=== PATIENT | male | born 1930 | race Caucasian/White ===

== ENCOUNTER 2020-11-18 12:50 | Emergency (ER) | payer OTHER, BC ==
[~2020-11-18] VITALS: Ht 188 cm; Wt 117.9 kg
[2020-11-18 13:58] LABS: URINE BILIRUBIN NEGATIVE (Negative); URINE BLOOD TRACE (Negative); URINE CLARITY CLEAR; URINE COLOR YELLOW; URINE GLUCOSE-RANDOM* NEGATIVE (Negative); URINE KETONES NEGATIVE (Negative); URINE LEUKOCYTES-REFLEX NEGATIVE (Negative); URINE NITRITE-REFLEX NEGATIVE (Negative); URINE PROTEIN (DIPSTICK) 2+ (Negative); URINE SPECIFIC GRAVITY >= 1.030 (1.005-1.035); URINE UROBILINOGEN 0.2 E.U./dl (0.2-1.0)
[2020-11-18 14:10] LABS: HEMATOCRIT 40.9 % (42.0-52.0); HEMOGLOBIN 13.7 gm/dL (14.0-18.0); MCHC 33.4 g/dL (28.0-37.0); MCV 89.8 fL (80.0-100.0); RBC 4.56 mil/uL (4.50-6.00); RDW 13.7 % (10.5-14.5); WBC 7.7 thou/uL (4.0-11.0)
[2020-11-18 14:12] LABS: BACTERIA-REFLEX 1-9 Few /HPF (None Seen); SQUAMOUS 0-3 Few /LPF (0-3); URINE RBC 1-2 Rare /HPF (NONE SEEN); URINE WBC-REFLEX 0-5 Rare /HPF (0-5)
[2020-11-18 14:14] LABS: MUCUS 4-6 Moderate strn/LPF (None Seen)
[2020-11-18 14:19] LABS: CALCIUM 8.2 mg/dL (8.5-10.1); CREATININE 2.8 mg/dL (0.7-1.3)
[2020-11-18 14:25] LABS: ALBUMIN 3.2 g/dL (3.4-5.0); TOTAL BILIRUBIN 0.9 mg/dL (0.2-1.0); TOTAL PROTEIN 7.1 g/dL (6.4-8.2)
[2020-11-18 16:12] VITALS: BP 103/61
[2020-11-18] MEDS ORDERED: NORVASC10 MG PO (16:17)
[2020-11-18] MEDS ORDERED: ASA81BEC PO (16:18)
[2020-11-18] MEDS ORDERED: ATORVASTATIN CA80 MG PO (16:18)
[2020-11-18] MEDS ORDERED: DICLOFENAC SOD100 G1 TOP (16:19)
[2020-11-18] MEDS ORDERED: CHILDREN'S ZYRT10 M1 PO (16:19)
[2020-11-18] MEDS ORDERED: DEPAKOTE ER500 M1 PO (16:19)
[2020-11-18] MEDS ORDERED: DULCOLAX STOOL100 M1 PO (16:20)
[2020-11-18] MEDS ORDERED: GLIPIZIDE 10 MG10 MG PO (16:21)
[2020-11-18] MEDS ORDERED: LEXAPRO20 MG PO (16:21)
[2020-11-18] MEDS ORDERED: ROBITUSSIN100 MG/53 PO (16:22)
[2020-11-18] MEDS ORDERED: HYDRALAZINE 5050 MG PO (16:23)
[2020-11-18] MEDS ORDERED: SUPER THERAVIT1 EACH PO (16:24)
[2020-11-18] MEDS ORDERED: MAALOX ADVANCE355 ML PO (16:24)
[2020-11-18] MEDS ORDERED: FISH OIL 1,001000 M3 PO (16:24)
[2020-11-18] MEDS ORDERED: ONDANSETRON ODT4 MG PO (16:25)
[2020-11-18] MEDS ORDERED: PROTONIX 20 MG20 MG PO (16:25)
[2020-11-18] MEDS ORDERED: FLOMAX0.4 MG PO (16:26)
--- NOTE | 2020-11-19 07:30 | EKG ---
[address] [address] ELECTROCARDIOGRAM REPORT Name: ORLIN ESPINOZA Room #: RENU aGviria#: [id number] Admission: 11/18/20 Attend Phys: Discharge: 11/18/20 Date of : [birth year] Report #: [id number] [facility] ED Test Date: 2020-11-18 Test Time: 14:02:56 Pat Name: ORLIN ESPINOZA Department: Room: Gender: M Casting Sorter: franck : 1930 Requested By: Tiffani Nice Order Number: [id number] MD: John Gutierres Measurements Intervals [place] Rate: 70 P: 14 MO: 183 QRS: -39 QRSD: 114 T: 27 QT: 423 QTc: 457 Interpretive Statements Sinus rhythm Atrial premature complex Left ventricular hypertrophy No previous ECG available for comparison Electronically Signed On 11-19-2020 7:30:06 CDT by John Gutierres [email or web address] <ELECTRONICALLY SIGNED> By: John Gutierres MD, [facility] 11/19/20 0730 1402 1402 John Gutierres MD, FACC /EPI
== END 2020-11-18 16:38 ==
LOC: ER 12:50
PROVIDERS: Nurse Practitioner Family
DX: F23 Brief psychotic disorder (principal); Z20.822 Contact with and (suspected) exposure to COVID-19; N18.9 Chronic kidney disease, unspecified; I12.9 Hypertensive chronic kidney disease with stage 1 through stage 4 chronic kidney disease, or unspecified chronic kidney disease; E11.22 Type 2 diabetes mellitus with diabetic chronic kidney disease; K21.9 Gastro-esophageal reflux disease without esophagitis

== ENCOUNTER 2020-11-18 17:48 | Inpatient (IN) | payer OTHER, BC ==
[~2020-11-18] VITALS: Ht 188 cm; Wt 118.8 kg
[~2020-11-18 17:48] MED LIST: ASA81BEC PO; ATORVASTATIN CA80 MG PO; CHILDREN'S ZYRT10 M1 PO; DEPAKOTE ER500 M1 PO; DICLOFENAC SOD100 G1 TOP; DULCOLAX STOOL100 M1 PO; FISH OIL 1,001000 M3 PO; FLOMAX0.4 MG PO; GLIPIZIDE 10 MG10 MG PO; HYDRALAZINE 5050 MG PO; LEXAPRO20 MG PO; MAALOX ADVANCE355 ML PO; NORVASC10 MG PO; ONDANSETRON ODT4 MG PO; PROTONIX 20 MG20 MG PO; ROBITUSSIN100 MG/53 PO; SUPER THERAVIT1 EACH PO
[2020-11-18 17:59] VITALS: BP 168/86
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
[2020-11-18 20:06] VITALS: BP 142/46
[2020-11-18 20:45] VITALS: BP 148/84
--- NOTE | 2020-11-19 04:08 | NUR ---
11-19-20 CARE TRANSFERRED 1899 OBSERVED PT SITTING IN DAY ROOM. LATER PT AAOX4, VSS, RR EVEN AND NONLABORED ON RA. PT DENIES SI/HI AND PAIN. PT PRESENTS CALM AND COOPERATIVE. DURING MEDICATION ADMIN PT HAD NO DIFFICULTIES, PT REPORTED HE WANTS TO GET BETTER, SO HE CAN GO HOME. PT ALSO REQUESTED SOMETHING TO HELP HIM SLEEP, PRN GIVEN. OBSERVED PT WALKING TO ROOM, PT HAS FULL ROM WITH STEADY GAIT. LATER NOTED PT RESTING WITH EYES CLOSED SUPINE IN BED. PT WILL CONTNUE TO BE MONITOR PER [facility] PROTOCOL.
[2020-11-19 06:51] LABS: CHOLESTEROL 111 mg/dL (<200); HDL CHOLESTEROL 31 mg/dL (>40); LDL CHOLESTEROL 46 mg/dL (<100); TC:HDL 3.6 Ratio (Not establshd); TRIGLYCERIDE 172 mg/dL (<150); VLDL 34 mg/dL (<40)
[2020-11-19 09:36] VITALS: BP 149/52
[2020-11-19 10:21] VITALS: BP 149/52
--- NOTE | 2020-11-19 10:50 | NUR ---
1050 assumed care of pt from overnight nurse. pt alert and oriented times 4. pt hard of hearing. pt denies pain. pt denies SI/HI/AH/VH. pt lungs clear. pt abdomen soft,bowel sound present. pt takes medication whole. will cont to monitor pt for safety and behaviors.
[2020-11-19 15:54] LABS: FOLIC ACID 18.3 ng/mL (8.6-58.9)
--- NOTE | 2020-11-19 17:01 | NUR ---
1700 pt given IVF of NS at 250 ml per hour, per order. pt tolerated procedure well insertion of saline lock to right forearm. pt complain of agitation. PRN haldol given at 1535 of 5 mg PO Haldol. Pt vital signs taken, Temp 97.7 F, r 20, p 80, BP 150/80, 02 sat 97 on room air. will cont to monitor pt for adverse reactions to IVF administration.
--- NOTE | 2020-11-19 17:05 | NUR ---
1100 pt requested prn med for agitation.. PO Haldol 5 mg given. will cont to monitor pt for behaviors.
--- NOTE | 2020-11-19 18:21 | NUR ---
1821 PT SITTING IN CHANELLE CHAIR TOLERATING IVF WELL.
[2020-11-19 20:27] VITALS: BP 181/46
[2020-11-20 01:06] LABS: GLYCOHEMOGLOBIN (HGB A1C) 8.7 % (4.8-5.6)
--- NOTE | 2020-11-20 04:35 | NUR ---
11-19-20 CARE TRANSFERRED 1900 PT SITTING IN RECLINER WITH NS IVF @250ML, C/D/P. LATER PT AAOX4, VSS, RR EVEN AND NONLABORED ON RA, PT PRESENTS IRRITABLE AND WANTING TO GO TO ROOM, PT REMAINS COOPERATIVE, PT DENIES SI/HI BUT REPORTS LOWER BACK PAIN AND RATES ON 6 ON 0-10 SCALE. PT HAS LLE PITTING EDEMA +3. DURING MEDICATION ADMIN PT HAD NO DIFFICULTIES, BUT NOTED SLIGHT TREMOR IN UE, PT TOLERATED IVF WELL, IV S/L, C/D/P AND WRAPPED WITH CLEAN COBAN. PT WAS ACCOMPAINED TO ROOM AND PT BED WAS ADJUSTED FOR COMFORT. PT PAIN WAS REASSESSED AND PT SCORED 2 ON 0-10 SCALE. LATER NOTED PT RESTING WITH EYS CLOSED. PT WILL CONTINUE TO BE MONITOR PER [facility] PROTOCOL.
[2020-11-20 07:54] VITALS: BP 148/40
--- NOTE | 2020-11-20 09:24 | NUR ---
Assess due to new admit to H with acute psychosis. Hx DM, HTN, CKD. A1C 8.7. On glipizide, MVI, B12, fish oil and lipitor. Wt is obese, BMI 34. Does have pitting edema LE. Receives carb control diet and eating 50-100% of first few meals on the unit. Presents low nutrition risk
[2020-11-20 11:22] LABS: ABSOLUTE NEUTROPHILS 5.4 thou/uL (1.4-8.2); BASOPHILS 0.6 % (0.0-2.0); EOSINOPHILS 0.3 % (0.0-3.0); HEMATOCRIT 39.3 % (42.0-52.0); HEMOGLOBIN 12.8 gm/dL (14.0-18.0); LYMPHOCYTES 15.1 % (24.0-44.0); MCH 29.4 pg (26.0-34.0); MCHC 32.5 g/dL (28.0-37.0); MCV 90.3 fL (80.0-100.0); MONOCYTES 8.6 % (1.0-8.0); PLATELET COUNT 260 thou/uL (150-400); POLYS 75.4 % (36.0-66.0); RBC 4.35 mil/uL (4.50-6.00); RDW 13.5 % (10.5-14.5); WBC 7.2 thou/uL (4.0-11.0)
[2020-11-20 11:32] LABS: CALCIUM 8.5 mg/dL (8.5-10.1); CREATININE 2.6 mg/dL (0.7-1.3); MAGNESIUM 1.6 mg/dL (1.8-2.4); POTASSIUM 4.2 mmol/L (3.5-5.1)
--- NOTE | 2020-11-20 17:26 | NUR ---
PATIENT CARE ASSUMED AT 0700 - IRRITABLE AT TIMES AND INPATIENT. STATES ANXIOUS QUITE A BIT. GIVEN SEROQUEL X 2 25 MG PRN - STATED HELPS - BUN AND CREATINE WERE ELEVATED. GIVEN BOLUS OF NS - PATIENT HAS IV IN RIGHT LOWER WRIST. TOLERATED WELL. DID NOT EAT DINNER - STATES APPETITE POOR. EDEMA NOTED IN LOWER EXTREMITIES BILATERALLY. MAKES NEEDS KNOW READILY. STATES WANTS TO HAVE GOOD NIGHT SLEEP TONIGHT.
[2020-11-20 20:37] VITALS: BP 190/49
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
--- NOTE | 2020-11-21 03:08 | NUR ---
PATIENT CARE WAS RESUMED AT 1900. HE IS ALERT AND ORIENTED TO SELF. PATIENT IS RESING IN HIS BED. LUNGS ARE CLEAR BS ACTIVE X4 QUADS. HE DENIES PAINS/SI/AVH/HI. ABLE TO VERNABLIZE HIS NEEDS. HAS IV TO HIS RIGHT ARM WITH A TRASPARENT DRESSING IN-PLACE. HE TOOK HIS MEDS WHOLE WITHOUT ANY ISSUES. EDEMA+ NOTED TO HIS BLE. HE HAS A NON SKID SOCKS ON, BED IS LOW, LOCKED AND ALARMED. CALL BET AT BED SIDE, CONTINUE CARE.
[2020-11-21 09:45] VITALS: BP 145/40
--- NOTE | 2020-11-21 17:42 | NUR ---
0700 pt care was assumed. Pt was in the day room alert. Alert and oriented x4. Assessments completed, vss. Denies si/hi, denies pain at this time. Took meds whole, no difficulty noted. Ambulates with a walker. Calm, pleasant and cooperative with care. Makes needs known to staff. Continent of bowel and bladder. No sign of acute distress noted upon assessment. At this time pt is in the day room eating dinner. Will continue to monitor.
[2020-11-21 20:12] VITALS: BP 164/53
[2020-11-21 20:30] VITALS: BP 168/58
[2020-11-21 22:10] LABS: SYPHILIS AB Non Reactive (Non Reactive)
--- NOTE | 2020-11-22 03:53 | NUR ---
11-21-20 CARE TRANSFERED 1899. LATER PT AAOX4, VSS, RR EVEN AND NONLABORED ON RA. PT DENIES SI/HI AND PAIN, +2 PITTING EDEMA ON LLE, HT RR, ABD SOFT AND ACTIVE. PT PRESENTS PLESANT, CALM AND COOPERATIVE THROUGHOUT NURSING ASSESSMENT. DURING MEDICATION PT HAD NO DIFFICULTIES. LATER PT CAME TO NURSING STATION AND REPORTED FEELING ANXIOUS, A PRN MEDICATION WAS ADMIN. LATER NOTED PT RESTING WITH EYES CLOSED IN BED. PT WILL CONTINUE TO BE MONITOR PER [facility] PROTOCOL.
[2020-11-22 08:00] LABS: CALCIUM 8.4 mg/dL (8.5-10.1); CREATININE 2.5 mg/dL (0.7-1.3)
--- NOTE | 2020-11-22 09:04 | NUR ---
Agency transfer summary rec'd from [facility] as the pt was on service with them prior to admission. Services included RN/PT/OT/CASING RUNNING MACHINE TENDER/RT. [facility] CASING RUNNING MACHINE TENDER notified.
[2020-11-22 09:40] VITALS: BP 143/58
--- NOTE | 2020-11-22 12:50 | NUR ---
Patient care assumed at 0700, he was sitting in the day room, calm and cooperative, alert and oriented x4, he ate breakfast, pleasent during assessment, active bowel sound, breath sound clear, RR even and nonlabored on RA, color pink with brisk capillary refill, no edema noted, he took his medication whole, he asked for something for anxiety, his seroquel was increased and to be taken 3x, patient ambulate on a walker with staedy gait, he denies SI/HI, will continue to monitor patient on safety
--- NOTE | 2020-11-22 14:19 | NUR ---
Patient still complained of agitation, doctor ordered Lorazepan 0.5mg, it was given as ordered, will continue to monitor patient.
[2020-11-22 19:55] VITALS: BP 174/52
[2020-11-22 20:15] VITALS: BP 174/52
--- NOTE | 2020-11-22 23:15 | NUR ---
Assumed care on 11/22/20 @ 1900, A&Ox4 HRRR, Lungs CTA bilat, ABD N x 4Q Took meds whole with water, retired to bed @ HS. Will continue to monitor for safety and comfort as per unit protocol.
[2020-11-23 09:30] VITALS: BP 147/49
--- NOTE | 2020-11-23 12:03 | NUR ---
Care of patient assumed 0700, patient still sleeping in his room, came out to eat breakfast, calm and pleasant for assessment, active bowel sound, breath sound clear, skin intact, no edema noted, patient took his medication whole, walked with OT, the OT said he can ambulate with out his walker, patient denies si/hi, will continue to monitor patient for safety, no complain of pain
[2020-11-23 19:38] VITALS: BP 152/44
--- NOTE | 2020-11-24 04:19 | NUR ---
PATIENT CARE WAS RESUMED AT 1900.HE IS ALERT AND ORIENTED. ABLE TO VERBALISE SOME CONCERNS. DENIES ANY SI/AVH/HI. HE ANBULATES WITH WALKER. TOOK HIS MEDS CONTINENT OF BOWEL AND BLADDER. BED IS LOW,LOCKED . PATIENT S A NON SK
--- NOTE | 2020-11-24 04:32 | NUR ---
PATIENT CARE WAS RESUME [id number]. HW IA ALERT AND ORIENTED AMBULATED ABD ALETO VERBALISE SOME NEEDS. HE DENIES PAINS/SI/AVH AND HE IS CONTINENT OF BOWEL AND BLADDER.TOOK HIS MEDS WHOLE AND BED IS LOW, LOCKED AND ALARMED. NONE SKID SOCK IS APPLIED
[2020-11-24 08:46] VITALS: BP 130/47
[2020-11-24 09:11] VITALS: BP 130/47
--- NOTE | 2020-11-24 18:22 | NUR ---
Assumed pt care at 0700. Pt was in the day room. Alert and oriented x4. Assessments completed, vss. Denies si/hi, Denies pain at this time. Took meds whole, no difficulty noted. Requires med education upon administration. Pt was calm and coperative with care. Makes needs known to staff. Continent of bowel and bladder. Ambulates with walker. Pt is forgetful at times. No behaviors noted this shift. Spoke with his this shift. At this time pt is in the day room watching TV. Will continue to monitor.
[2020-11-24 20:03] VITALS: BP 165/51
--- NOTE | 2020-11-25 02:41 | NUR ---
PT CARE ASSUMED WITH PT IN BED AT SHIFT CHANGE.PT IS A/O X4.PT IS UP AD MIRIAM.PT RESISTED TAKING MEDS SAYING IS MAKING HER BLOOD PRESSURE HIGH.PT TAKE MEDS WHOLE WITH NO ISSUES.PT UPSET WHILE TALIKING ON THE PHONE.PT REMAIN IN HER ROOM TILL THIS TIME WITH NO ISSUES NOTED ON ROUNDS.WILL CONTINUE TO MONITOR
--- NOTE | 2020-11-25 02:57 | NUR ---
PT CARE ASSUMED WITH PT IN THE DAY ROOM WITH OTHERS WATCHING TV.PT IS A/O X4.PT IS UP WITH WALKER .PT WENT TO ROOM.PT TAKES MEDS WHOLE WITH NO ISSUES.PT WANTS TO GO HOME AND SAYS HE MISS HIS .PT HAD NO BEHAVIOURAL ISSUE TILL THIS TIME.PT ABLE TO TOILET SELF.WILL CONTINUE TO MONITOR PER POC
[2020-11-25 09:59] VITALS: BP 151/44
[2020-11-25 11:11] VITALS: BP 150/62
--- NOTE | 2020-11-25 12:39 | NUR ---
1230 RESUMMED CARE FROM OVERNIGHT SHIFT THIS AM PATIENT IN DAY ROM SITTING QUIET. PATIENT ATE BREAKFAST TOOK MEDICATION WITHOUT INCIDENCE PATIENT ALERT ORIENTED TIMES 4. PATIENT CALM COOPERATIVE DENIES SI/HI/AH/VH AT PRESENT. PATIENT ABDOMEN SOFT BOWEL SOUNDS PRESENT PATIENTS LUNGS CLEAR PATIENT PARTICPATED IN GROUPS. WILL CONTINUE TO MONITOR PATIENT FOR SAFETY AND BEHAVIORS.
--- NOTE | 2020-11-25 15:54 | NUR ---
RT PROGRESS NOTE-- HIS PARTICICPATION HAS BEEN GREAT WITH ATTENDING GROUPS IN THE [facility] THE GROUP THERAPY ROOM. PT HAS APPEARED TO BE CALM MAJORITY OF HIS ADMISSION. PT WILL BE ENCOURAGE TO CONTINUE TO ATTEND ALL RECREATION THERAPY GROUPS.
[2020-11-25 20:00] VITALS: BP 189/62
--- NOTE | 2020-11-26 02:55 | NUR ---
11-25-20 CARE TRANSFERRED 1900 OBSERVED PT SITTING IN DAY ROOM. LATER PT AAOX4, VSS, RR EVEN AND NONLABORED ON RA, PT DENIES PAIN AND SI/HI. PT PRESENTS PLESANT, CALM AND COOPERTIVE THROUGHOUT NURSING ASSESSMENT. DURING MEDICATION ADMIN PT HAD NO DIFFICULTIES TAKING MEDICATION WHOLE WITH WATER. PT WILL CONTINUE TO BE MONITOR PER [facility] PROTOCOL.
[2020-11-26 10:19] VITALS: BP 125/69
--- NOTE | 2020-11-26 11:30 | NUR ---
Patient care assumed 0700, he was sitting in the day room, alert and oriented x4, calm and cooperative with care, breath sound clear, regular HR auscultated, color pink with brisk capillary refill, no edema noted, skin intact, patient ate and took his medication whole, he abulate with steady gait, he attends groups and paticipated, he denies SI/HI, will continue to monitor for safety.
--- NOTE | 2020-11-26 16:23 | NUR ---
SIRISHA and Dr. Mishra spoke with the Pt's son Dony by phone. The Pt was also in the room during this meeting. Dony informed the family is seeking a guardianship and has contacted an trial attorney. Dony requested a letter from Dr. Mishra concerning the matter be faxed to the trial attorney. The Pt does not have a DPOA or guardian at this time. Medications were discussed. Discharge was also discussed. The Pt's is scared to be in the home with the Pt. Dony stated the Pt would be able to come to his home. Dony currently works from home and is able to provide some level of supervision for the Pt at this time. Dony stated the family is currently looking at assisted living facilities and planning to place once they obtain a guardianship. Discharge is scheduled for 11/27/2020. Dony asked that Venkat's other son Wilmer be called to transport. There were no other questions or concerns at this time. After the meeting SIRISHA contacted Wilmer, . Wilmer stated he was able to pick the Pt up between [id number]. D/C set for 11/27/2020 @ 1330. Pt has an appointment with PCP, Dr. Eliazbet Carrion 11/30/2020 @ 1330. Pt has a psychiatry appointment with Dr. Karen Wang 01/15/2021 @1500. SIRISHA contacted [facility] in an attempt to schedule a [facility] SIRISHA then contacted the [facility] for an intake for psychiatry, however they do not have any clinicians able to accept medicare at this time.
[2020-11-26 20:15] VITALS: BP 146/45
[2020-11-26 20:40] VITALS: BP 148/64
--- NOTE | 2020-11-27 03:43 | NUR ---
11-26-20 CARE TRANSFERRED 1900 OBSERVED PT SITTING IN DAY ROOM. LATER PT AAOX4, VSS, RR EVEN AND NONLABORED ON RA, PT DENIES PAIN AND SI/HI. PT REPORTS HE IS LOOKING FORWARD TO GOING HOME AND SEE HIS AND FAMILY. PT HAS BEEN PLESANT, CALM AND COOPERATIVE. DURING MEDICATION ADMIN PT HAD NO DIFFICULTIES. LATER PT BED WAS ADJUSTED FOR COMFORT, PT WILL CONTINUE TO BE MONITOR PER [facility] PROTOCOL.
--- NOTE | 2020-11-27 10:13 | NUR ---
Dr. Mishra informed the letter recommending guardianship was completed. It was faxed to the families professional sports scout, Vel Yang, at [phone]. Vel's office number is [phone]. A copy was placed in the Pt's chart
[2020-11-27] MEDS ORDERED: LIPITOR40 MG PO (12:17)
[2020-11-27] MEDS ORDERED: COREG6.25 MG PO (12:18)
[2020-11-27] MEDS ORDERED: CELEXA10 MG PO (12:18)
[2020-11-27] MEDS ORDERED: SEROQUEL 50 MG50 M1 PO (12:21)
[2020-11-27] MEDS ORDERED: NAMENDA 5 MG TAB5 M1 PO (12:22)
[2020-11-27] MEDS ORDERED: MIRALAX17 GM PO (12:23)
[2020-11-27] MEDS ORDERED: PROTONIX 20 MG20 M1 PO (12:23)
[2020-11-27] MEDS ORDERED: GLUCOTROL5 MG PO ×2 (12:24)
[2020-11-27] MEDS ORDERED: B-12500 MCG PO (12:25)
[2020-11-27] MEDS ORDERED: VITAMIN D325 MC2 PO (12:25)
[2020-11-27 13:21] VITALS: BP 154/56
--- NOTE | 2020-11-27 14:29 | NUR ---
Assumed pt care at 0700. pt was in the day room awake. Alert and oriented x4. Assessments completed, vss. lungs clear, active bowel sound. Denies si/hi. denies pain. Took meds whole, no difficulty noted. Ambulates with a steady gait. continent of bowel and bladder. Makes need known to staff. 1400 Pt was D/C home to via w/c. Pt was D/C with his belongings and D/C instrution. DIScharge instrution was given to patient and his by senior writer.
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
== END 2020-11-27 14:00 | disposition home or self-care (01) | DRG 885 ==
LOC: SBH
PROVIDERS: Nurse Practitioner; Nurse Practitioner Psychiatric/Mental Health; ADMIT Psychiatry & Neurology Psychiatry; ATTEND Psychiatry & Neurology Psychiatry
DX: F32.2 Major depressive disorder, single episode, severe without psychotic features (principal); F01.51 Vascular dementia, unspecified severity, with behavioral disturbance; N17.9 Acute kidney failure, unspecified; N18.9 Chronic kidney disease, unspecified; E78.5 Hyperlipidemia, unspecified; N40.0 Benign prostatic hyperplasia without lower urinary tract symptoms; E11.22 Type 2 diabetes mellitus with diabetic chronic kidney disease; I12.9 Hypertensive chronic kidney disease with stage 1 through stage 4 chronic kidney disease, or unspecified chronic kidney disease; E66.9 Obesity, unspecified; Z68.33 Body mass index [BMI] 33.0-33.9, adult; Z88.6 Allergy status to analgesic agent; Z88.8 Allergy status to other drugs, medicaments and biological substances; Z79.82 Long term (current) use of aspirin; Z79.899 Other long term (current) drug therapy
CPT/HCPCS: 10880